=== PATIENT | female | born 1985 | race Caucasian/White ===

== ENCOUNTER → 2017-09-26 | Outpatient (CLI) | payer BC ==
[~2017-09-26] MED LIST: ACHD5005 PO; ACYC800T PO; CIPR500T78 PO; HYDR-34 PO; HYDR-3816 PO; HYOS0.1232; IBP600T1 PO; IRON1TAB94 PO; METR500T PO; NITR-65 PO; ONDA4TAB8 PO; PREN-115 PO; SERT25TA PO; TAMS0.4C98 PO; TRINESSA
--- NOTE | 2017-09-26 09:35 | Diagnostic Imaging Report ---
PROCEDURE: MRI right joint lower extremity without contrast. TECHNIQUE: A multiplanar/multisequence noncontrast enhanced MRI of the right lower extremity was accomplished. INDICATION: Knee pain and swelling. COMPARISON: There are no prior studies available for comparison. FINDINGS: On the proton dense fat-saturated sagittal series, there is no abnormal signal arising from either meniscus to indicate a tear. The anterior and posterior cruciate ligaments, quadriceps and infrapatellar tendons, and the collateral ligaments are intact. There is no abnormal signal arising from the osseous structures to suggest bone edema or fracture. The medial and lateral compartments of the knee joint are fairly well-maintained but there is narrowing of the lateral aspect of the patellofemoral space. There is no sign of chondromalacia patella, however. There is a small joint effusion present. IMPRESSION: 1. There is no evidence for a tear of either meniscus. 2. The major ligaments and tendons are intact. 3. There is no sign of an acute bony abnormality. 4. The medial and lateral compartments of the knee joint are fairly well-maintained but there is narrowing of the lateral aspect of the patellofemoral space. Dictated by: Dictated on workstation # [id number]
== END ==
LOC: RAD 08:22
PROVIDERS: ATTEND Nurse Practitioner Primary Care
DX: M25.861 Other specified joint disorders, right knee (principal)
CPT/HCPCS: 73721

== ENCOUNTER → 2018-08-28 | Outpatient (REF) ==
--- NOTE | 2018-08-28 16:35 | Diagnostic Imaging Report ---
EXAMINATION: Right hand. INDICATION: Injury, hand pain. Three views were obtained. There are no prior studies available for comparison. FINDINGS: There is no fracture, dislocation, or acute bony abnormality evident. The radiocarpal joint is well maintained. The soft tissues are unremarkable. IMPRESSION: There is no evidence for an acute bony abnormality. Dictated by: Dictated on workstation # [id number]
== END | disposition home or self-care (01) ==
LOC: RAD 15:44 → MERGE 15:44
PROVIDERS: ATTEND Nurse Practitioner Family
CPT/HCPCS: 73130

== ENCOUNTER 2018-10-06 20:08 | Emergency (ER) | payer BC ==
[~2018-10-06] VITALS: Ht 165.1 cm; Wt 88.5 kg
--- OUTSIDE RECORDS SUMMARY | 2018-10-06 20:14 | XMS REPORT ---
Author Author SANTO GOINS Organization [facility] Address [address] [place] [address] Care Team Providers Care Logistics/Shipper Name Role Phone SANTO GOINS Unavailable PROBLEMS Type Condition ICD9-CM Code MCG86-DG Code Onset Dates Condition Status SNOMED Code Problem Pain in right knee M25.561 Active 72717364 Problem Other chronic pain G89.29 Active 85206010 Problem Hx of herpes simplex type 2 infection Z86.19 Active [id number] ALLERGIES No Information ENCOUNTERS Encounter Location Date Diagnosis [place] [address] [address] September, [place] [address] [address] September, Pain in right knee M25.561 ; Other chronic pain G89.29 ; Strain of right shoulder, subsequent encounter S46.911D and Candidal vaginitis B37.3 [place] [address] [place] [id number] [place] [address] Aug, Skin tag L91.8 [place] [address] [place] [id number] [place] [address] Aug, Acute cystitis without hematuria N30.00 ; Pain in right shoulder M25.511 ; Pain in right knee M25.561 ; Other chronic pain G89.29 ; Screening for STD sexually transmitted disease Z11.3 ; Urinary frequency R35.0 and Skin tag L91.8 [facility] [address] [place] [id number] [place] [address] May, Fever R50.9 and Influenza J11.1 [place] [address] [address] Dec, Screening for STD sexually transmitted disease Z11.3 [place] [address] [address] Dec, [place] [address] [address] Dec, Well woman exam Z01.419 ; Screening for STD sexually transmitted disease Z11.3 and Yeast vaginitis B37.3 [facility] [address] [id number] Nov, Encounter for dental examination and cleaning without abnormal findings Z01.20 [facility] [address] [id number] September, Dental examination Z01.20 [facility] [address] [address] Aug, Chills R68.83 and Influenza A J10.1 [facility] [address] [address] Aug, Sore throat J02.9 and Strep pharyngitis J02.0 [facility] [address] [address] Mar, Right hand pain M79.641 ; Right wrist pain M25.531 and Contusion of right hand, initial encounter S60.221A [place] [address] [place] [id number] [place] [address] Jun, Hematuria, unspecified R31.9 [place] [address] [address] 18 Jun, 2015 Well woman exam Z01.419 ; Encounter for screening for malignant neoplasm of cervix Z12.4 ; Acne, unspecified L70.9 ; Surveillance for control, intrauterine device Z30.431 ; Urinary frequency R35.0 ; BMI 31.0-31.9,adult Z68.31 ; Genital herpes simplex, unspecified site A60.00 ; Vaginal discharge N89.8 ; Lower abdominal pain R10.30 ; Family history of diabetes mellitus Z83.3 ; Yeast infection B37.9 and Trichomonas vaginalis (TV) infection A59.01 [facility] [address] [address] September, TDAP DX V06.1 [facility] [address] [place] [id number] [place] [address] 14 Aug, 2014 [facility] [address] [place] [id number] [place] [address] Aug, [facility] [address] [place] [id number] [place] [address] Jul, [facility] [address] [place] [id number] [place] [address] Jul, [facility] [address] [place] [id number] [place] [address] Jul, [facility] [address] [place] [id number] [place] [address] Jul, [facility] [address] [place] [id number] [place] [address] Apr, [facility] [address] [place] [id number] [place] [address] Apr, [facility] [address] [place] [id number] [place] [address] Mar, [facility] [address] [place] [id number] [place] [address] Mar, [facility] [address] [place] [id number] [place] [address] Mar, [facility] [address] [place] [id number] [place] [address] Mar, IMMUNIZATIONS No Known Immunizations SOCIAL HISTORY Never Assessed REASON FOR VISIT Possible Referral PLAN OF CARE VITAL SIGNS MEDICATIONS Unknown Medications RESULTS No Results PROCEDURES No Known procedures INSTRUCTIONS MEDICATIONS ADMINISTERED No Known Medications MEDICAL (GENERAL) HISTORY Type Description Date Medical History Herpes Medical History kidney stones Surgical History cholecystectomy Surgical History lithotripsy Surgical History IUD Hospitalization History childbirth
--- OUTSIDE RECORDS SUMMARY | 2018-10-06 20:14 | XMS REPORT ---
Author Author SANTO GOINS [facility] Address [address] [place] [address] Care Team Providers Care Incident Analyst Name Role Phone SANTO GOINS Unavailable PROBLEMS Type Condition ICD9-CM Code MYU45-LS Code Onset Dates Condition Status SNOMED Code Problem Pain in right knee M25.561 Active 08156334 Problem Other chronic pain G89.29 Active 51780085 Problem Hx of herpes simplex type 2 infection Z86.19 Active 205559168 ALLERGIES No Information ENCOUNTERS Encounter Location Date Diagnosis [place] [address] [address] Mar, [place] [address] [place] [id number] [place] [address] Mar, Lower abdominal pain R10.30 and Vaginal discharge N89.8 [place] [address] [address] September, [place] [address] [place] [id number] [place] [address] September, Pain in right knee M25.561 ; Other chronic pain G89.29 ; Strain of right shoulder, subsequent encounter S46.911D and Candidal vaginitis B37.3 [place] [address] [place] [id number] [place] [address] Aug, Skin tag L91.8 [place] [address] [place] [id number] [place] [address] Aug, Acute cystitis without hematuria N30.00 ; Pain in right shoulder M25.511 ; Pain in right knee M25.561 ; Other chronic pain G89.29 ; Screening for STD sexually transmitted disease Z11.3 ; Urinary frequency R35.0 and Skin tag L91.8 [facility] [address] [place] [id number] [place] [address] May, Fever R50.9 and Influenza J11.1 [place] [address] [address] Dec, Screening for STD sexually transmitted disease Z11.3 [place] [address] [address] Dec, [place] [address] [address] Dec, Well woman exam Z01.419 ; Screening for STD sexually transmitted disease Z11.3 and Yeast vaginitis B37.3 [facility] [address] [id number] Nov, Encounter for dental examination and cleaning without abnormal findings Z01.20 [facility] [address] [id number] September, Dental examination Z01.20 [facility] [address] [address] Aug, Chills R68.83 and Influenza A J10.1 [facility] [address] [address] Aug, Sore throat J02.9 and Strep pharyngitis J02.0 [facility] [address] [address] Mar, Right hand pain M79.641 ; Right wrist pain M25.531 and Contusion of right hand, initial encounter S60.221A [place] [address] [address] Jun, Hematuria, unspecified R31.9 [place] [address] [address] 18 Feb, 2016 Well woman exam Z01.419 ; Encounter for [...] B37.9 and Trichomonas vaginalis (TV) infection A59.01 [facility] [address] [place] [id number] [place] [address] September, TDAP DX V06.1 [facility] [address] [place] [id number] [place] [address] Aug, [facility] [address] [place] [id number] [place] [address] Aug, [facility] [address] [place] [id number] [place] [address] Jul, [facility] [address] [place] [id number] [place] [address] Jul, [facility] [address] [place] [id number] [place] [address] Jul, [facility] [address] [place] [id number] [place] [address] Jul, [facility] [address] [place] [id number] [place] [address] Apr, [facility] [address] [place] [id number] [place] [address] Apr, [facility] [address] [place] [id number] [place] [address] Mar, [facility] [address] [place] [id number] [place] [address] Mar, [facility] [address] [place] [id number] [place] [address] Mar, [facility] [address] [facility] [id number] [address] Mar, IMMUNIZATIONS No Known Immunizations SOCIAL HISTORY Never Assessed REASON FOR VISIT request return call PLAN OF CARE VITAL SIGNS MEDICATIONS Unknown Medications RESULTS No Results PROCEDURES No Known procedures INSTRUCTIONS MEDICATIONS ADMINISTERED No Known Medications MEDICAL (GENERAL) HISTORY Type Description Date Medical History Herpes Medical History kidney stones Surgical History cholecystectomy Surgical History lithotripsy Surgical History IUD Surgical History right knee arthroscopic chondroplasty of patella, trochlea and lateraltibial plateau- Dr. Lopez 10/31/17 Hospitalization History childbirth
--- OUTSIDE RECORDS SUMMARY | 2018-10-06 20:14 | XMS REPORT ---
Author Author Migration, Doctor Organization [facility] Address Unknown Phone Unavailable Care Team Providers Care [employer] Name Role Phone Migration, Doctor Unavailable Unavailable PROBLEMS Type Condition ICD9-CM Code JGP85-CZ Code Onset Dates Condition Status SNOMED Code Problem Other chronic pain G89.29 Active 60155414 Problem Pain in right knee M25.561 Active 37710689 Problem Hx of herpes simplex type 2 infection Z86.19 Active [id number] ALLERGIES No Information ENCOUNTERS Encounter Location Date Diagnosis [address] [address] Aug, [place] [address] [place] [id number] [address] Aug, Screening for STD sexually transmitted disease Z11.3 ; Vaginal odor N89.8 ; Vaginal discharge N89.8 ; Other specified bacterial agents as the cause of diseases classified elsewhere B96.89 and Acute vaginitis N76.0 [facility] [address], [place] [address] Mar, [facility] [address] [place] [id number] [address] Mar, [facility] [address] [place] [id number] [address] Mar, Lower abdominal pain R10.30 and Vaginal discharge N89.8 [facility] [address] [place] [id number] [address] September, [facility] [address], [place] [address] September, Pain in right knee M25.561 ; Other chronic pain G89.29 ; Strain of right shoulder, subsequent encounter S46.911D and Candidal vaginitis B37.3 [facility] [address] [place] [address] Aug, Skin tag L91.[address] [address] Aug, Acute cystitis without hematuria N30.00 ; Pain in right shoulder M25.511 ; Pain in right knee M25.561 ; Other chronic pain G89.29 ; Screening for STD sexually transmitted disease Z11.3 ; Urinary frequency R35.0 and Skin tag L91.8 [facility] [address] [address] May, Fever R50.9 and Influenza J11.[address] [address] Dec, Screening for STD sexually transmitted disease Z11.[address] [address] Dec, [address] [address] Dec, Well woman exam Z01.419 ; Screening for STD sexually transmitted disease Z11.3 and Yeast vaginitis B37.3 [facility] [address] [id number] Nov, Encounter for dental examination and cleaning without abnormal findings Z01.20 [facility] [address] [id number] September, Dental examination Z01.20 [facility] [address] [address] Aug, Chills R68.83 and Influenza A J10.1 [facility] [address] [address] Aug, Sore throat J02.9 and Strep pharyngitis J02.0 [facility] [address] [address] Mar, Right hand pain M79.641 ; Right wrist pain M25.531 and Contusion of right hand, initial encounter S60.221A [place] [address] [place] [id number] [place] [address] 20 Jun, 2015 Hematuria, unspecified R31.9 [place] [address] [place] [id number] [place] [address] 18 Jun, 2015 Well woman exam Z01.419 [...] B37.9 and Trichomonas vaginalis (TV) infection A59.01 [place] [address] [place] [id number] [place] [address] September, TDAP DX V06.1 [place] [address] [place] [id number] [place] [address] 14 Aug, 2014 [place] [address] [place] [id number] [place] [address] Aug, [place] [address] [place] [address] Jul, [place] [address] [place] [id number] [place] [address] Jul, [place] [address] [place] [id number] [place] [address] Jul, [place] [address] [place] [id number] [place] [address] Jul, [place] [address] [place] [address] Apr, [place] [address] [place] [id number] [address] Apr, [facility] [address] [facility] [id number] [address] Mar, [facility] [address] [place] [id number], [place] [address] Mar, [facility] [address] [facility] [id number] [address] Mar, [facility] [address] [place] [id number], [place] [address] Mar, IMMUNIZATIONS No Known Immunizations SOCIAL HISTORY Never Assessed REASON FOR VISIT EMR-[facility] PLAN OF CARE VITAL SIGNS MEDICATIONS Unknown [...]
--- OUTSIDE RECORDS SUMMARY | 2018-10-06 20:14 | XMS REPORT ---
Author Author Migration, Doctor Organization [facility] Address Unknown Phone Unavailable Care Team Providers Care [employer] Name Role Phone Migration, Doctor Unavailable Unavailable PROBLEMS Type Condition ICD9-CM Code ISR54-LY Code Onset Dates Condition Status SNOMED Code Problem Other chronic pain G89.29 Active 28374992 Problem Pain in right knee M25.561 Active 71669364 Problem Hx of herpes simplex type 2 infection Z86.19 Active 201099507 ALLERGIES No Information ENCOUNTERS Encounter Location Date Diagnosis [place] [address] [place] [id number] [place] [address] Aug, [place] [address] [place] [id number] [place] [address] Mar, [place] [address] [place] [id number] [place] [address] Mar, [place] [address] [place] [id number] [place] [address] Mar, Lower abdominal pain R10.30 and Vaginal discharge N89.8 [place] [address] [place] [id number] [place] [address] September, [place] [address] [place] [id number] [place] [address] September, Pain in right knee M25.561 ; Other chronic pain G89.29 ; Strain of right shoulder, subsequent encounter S46.911D and Candidal vaginitis B37.3 [place] [address] [place] [id number] [place] [address] Aug, Skin tag L91.8 [place] [address] [place] [id number] [place] [address] Aug, Acute cystitis without hematuria N30.00 ; Pain in right shoulder M25.511 ; Pain in right knee M25.561 ; Other chronic pain G89.29 ; Screening for STD sexually transmitted disease Z11.3 ; Urinary frequency R35.0 and Skin tag L91.8 [facility] [address] [address] May, Fever R50.9 and Influenza J11.[address] [address] Dec, Screening for STD sexually transmitted disease Z11.[address] [address] Dec, [address] [address] Dec, Well woman exam Z01.419 ; Screening for STD sexually transmitted disease Z11.3 and Yeast vaginitis B37.3 [facility] [address] [id number] Nov, Encounter for dental examination and cleaning without abnormal findings Z01.20 [facility] [address] [id number] September, Dental examination Z01.20 [facility] [address] [address] Aug, Chills R68.83 and Influenza A J10.1 [facility] [address] [address] Aug, Sore throat J02.9 and Strep pharyngitis J02.0 [facility] [address] [address] Mar, Right hand pain M79.641 ; Right wrist pain M25.531 and Contusion of right hand, initial encounter S60.221A [address] [address] Jun, Hematuria, unspecified R31.9 [facility] [address], [place] [address] 18 Jun, 2016 Well woman exam Z01.419 ; Encounter [...] B37.9 and Trichomonas vaginalis (TV) infection A59.01 [facility] [address] [place] [id number] [place] [address] September, TDAP DX V06.1 [facility] [address] [place] [id number] [place] [address] 14 Aug, 2014 [facility] [address] [place] [id number] [place] [address] Aug, [facility] [address] [place] [id number] [place] [address] Jul, [facility] [address] [place] [id number] [place] [address] Jul, [facility] [address] [place] [id number] [place] [address] Jul, [facility] [address] [place] [id number] [place] [address] Jul, [facility] [id number] [place] [address] Apr, [facility] [address] [place] [id number] [place] [address] Apr, [facility] [id number] [place] [address] Mar, [facility] [address] [place] [id number] [place] [address] Mar, [facility] [address] [facility] [id number] [address] Mar, [facility] [address] [facility] [id number] [address] Mar, IMMUNIZATIONS No Known Immunizations SOCIAL HISTORY Never Assessed REASON FOR VISIT EMR-[facility] PLAN OF CARE VITAL SIGNS MEDICATIONS Medication Instructions Dosage Frequency Start Date End Date Duration Status Flonase 50 mcg/actuation 1 sprays by Nasal route 2 times per day in each nostril Apr, Active Acyclovir by oral route Mar, Active Bactrim DS 800-160 mg 1 tablet by Oral route 2 times per day for 10 day(s) Apr, Active RESULTS No Results PROCEDURES No Known procedures INSTRUCTIONS MEDICATIONS ADMINISTERED No Known Medications MEDICAL (GENERAL) HISTORY Type Description Date Medical History Herpes Medical History kidney stones Surgical History cholecystectomy Surgical History lithotripsy Surgical History IUD Surgical History right knee arthroscopic chondroplasty of patella, trochlea and lateraltibial plateau- Dr. Lopez 10/31/17 Hospitalization History childbirth
--- OUTSIDE RECORDS SUMMARY | 2018-10-06 20:15 | XMS REPORT ---
Author Author AMY TORIBIO Organization [facility] Address [address] [place] [address] Phone Unavailable Care Team Providers Care Director Print Name Role Phone AMY TORIBIO Unavailable Unavailable PROBLEMS Type Condition ICD9-CM Code MSS00-CB Code Onset Dates Condition Status SNOMED Code Problem Other chronic pain G89.29 Active 68978560 Problem Hx of herpes simplex type 2 infection Z86.19 Active 917987025 ALLERGIES No Known Allergies ENCOUNTERS Encounter Location Date Diagnosis [facility] [address] [address] Aug, Acute cystitis without hematuria N30.00 ; Pain in right shoulder M25.511 ; Pain in right knee M25.561 ; Other chronic pain G89.29 ; Screening for STD (sexually transmitted disease) Z11.3 ; Urinary frequency R35.0 and Skin tag L91.8 [facility] [address] [address] May, Fever R50.9 and Influenza J11.1 [facility] [address] [place] [id number] [place] [address] Dec, Screening for STD (sexually transmitted disease) Z11.3 [facility] [address] [place] [id number] [place] [address] Dec, [facility] [address] [place] [id number] [place] [address] Dec, Well woman exam Z01.419 ; Screening for STD (sexually transmitted disease) Z11.3 and Yeast vaginitis B37.3 [facility] [address] [place] [id number] [place] [id number] Nov, Encounter for dental examination and cleaning without abnormal findings Z01.20 [facility] [address] [id number] 10 Sep, 2016 Dental examination Z01.20 [facility] [place] [address] [address] Aug, Chills R68.83 and Influenza A J10.1 [facility] [place] [address] [id number] [place] [address] Aug, Sore throat J02.9 and Strep pharyngitis J02.0 [facility] [place] [address] [address] Mar, Right hand pain M79.641 ; Right wrist pain M25.531 and Contusion of right hand, initial encounter S60.221A [place] [address] [address] 20 Jun, 2015 Hematuria, unspecified R31.[address] [address] 18 Jun, 2016 Well woman exam Z01.419 [...] B37.9 and Trichomonas vaginalis (TV) infection A59.01 [place] [address] [address] [id number] [place] [address] September, TDAP DX V06.1 [place] [address] [address] 14 Aug, 2014 [place] [address] [address] 13 Aug, 2014 [place] [address] [address] Jul, [facility] [address] [address] Jul, [facility] [address] [address] Jul, [facility] [address] [place] [id number] [address] Jul, [facility] [address] [address] Apr, [facility] [address] [address] Apr, [facility] [address] [address] Mar, [facility] [address] [address] Mar, [facility] [address] [address] Mar, [facility] [address] [place] [id number] [address] Mar, IMMUNIZATIONS No Known Immunizations SOCIAL HISTORY Never Assessed REASON FOR VISIT PROPHY/KASIE PLAN OF CARE Activity Details Follow Up 6 Months Reason:RECALL VITAL SIGNS MEDICATIONS Medication Instructions Dosage Frequency Start Date End Date Duration Status Bactrim DS 800-160 mg 1 tablet by Oral route 2 times per day for 10 day(s) Apr, Active Flonase 50 mcg/actuation 1 sprays by Nasal route 2 times per day in each nostril Apr, Active Flagyl 500 MG Orally once 4 tablets Jun, 1 dose Active Zofran 4 MG Orally 3 times a day 1 tablet 8h Aug, Active Tamiflu 75 MG Orally Twice a day 1 capsule 12h Aug, 5 day(s) Active [place] 5-325 MG Orally every 6 hrs 1 tablet as needed 6h Aug, Active Acyclovir by oral route Mar, Active RESULTS No Results PROCEDURES Procedure Date Ordered Result Body Site COMP ORAL EVALUATION - NEW/EST PT November 24, 2016 INTRAORL-PERIAPICAL 1 FILM 24133 November 24, 2016 PROPHYLAXIS - ADULT November 24, 2016 PANORAMIC FILM SEE ALSO CODE 16813 November 24, 2016 INTRAORL-PERIAPICAL EA ADD FILM November 24, 2016 INTRAORL-PERIAPICAL EA ADD FILM November 24, 2016 BITEWINGS - FOUR FILMS November 24, 2016 INTRAORL-PERIAPICAL EA ADD FILM November 24, 2016 INSTRUCTIONS MEDICATIONS ADMINISTERED No Known Medications MEDICAL (GENERAL) HISTORY Type Description Date Medical History Herpes Medical History kidney stones Surgical History cholecystectomy Surgical History lithotripsy Surgical History IUD Hospitalization History childbirth
--- OUTSIDE RECORDS SUMMARY | 2018-10-06 20:15 | XMS REPORT ---
Author Author TENNILLE Sanchez Organization [facility] Address [address] [place] [address] Care Team Providers Care Cabin Crew Name Role Phone TENNILLE Sanchez Unavailable PROBLEMS Type Condition ICD9-CM Code HSA93-KG Code Onset Dates Condition Status SNOMED Code Problem Pain in right knee M25.561 Active 88590627 Problem Other chronic pain G89.29 Active 36014581 Problem Hx of herpes simplex type 2 infection Z86.19 Active 431115086 ALLERGIES No Known Allergies ENCOUNTERS Encounter Location Date Diagnosis [place] [address] [address] September, [place] [address] [address] September, Pain in right knee M25.561 ; Other chronic pain G89.29 ; Strain of right shoulder, subsequent encounter S46.911D and Candidal vaginitis B37.3 [place] [address] [place] [id number] [place] [address] Aug, Skin tag L91.8 [place] [address] [address] Aug, Acute cystitis without hematuria N30.00 ; Pain in right shoulder M25.511 ; Pain in right knee M25.561 ; Other chronic pain G89.29 ; Screening for STD sexually transmitted disease Z11.3 ; Urinary frequency R35.0 and Skin tag L91.8 [facility] [address] [address] May, Fever R50.9 and Influenza J11.1 [place] [address] [address] Dec, Screening for STD sexually transmitted disease Z11.3 [place] [address] [address] Dec, [place] [address] [address] Dec, Well woman exam Z01.419 ; Screening for STD sexually transmitted disease Z11.3 and Yeast vaginitis B37.3 [facility] [address] [id number] Nov, Encounter for dental examination and cleaning without abnormal findings Z01.20 [facility] [address] [id number] September, Dental examination Z01.20 [facility] [address] [address] Aug, Chills R68.83 and Influenza A J10.1 [facility] [place] [id number] [place] [address] Aug, Sore throat J02.9 and Strep pharyngitis J02.0 [facility] [place] [id number] [place] [address] Mar, Right hand pain M79.641 ; Right wrist pain M25.531 and Contusion of right hand, initial encounter S60.221A [place] [address] [address] Jun, Hematuria, unspecified R31.[address] [address] 18 Jun, 2015 Well woman exam Z01.419 [...] B37.9 and Trichomonas vaginalis (TV) infection A59.01 [facility] [place] [address], [place] [address] September, TDAP DX V06.1 [facility] [place] [address] [place] [id number] [place] [address] Aug, [facility] [place] [address] [place] [id number] [place] [address] Aug, [facility] [place] [address] [place] [id number] [place] [address] Jul, [facility] [place] [address] [place] [id number] [place] [address] Jul, [facility] [place] [address] [place] [id number] [place] [address] Jul, [facility] [place] [address] [place] [id number] [place] [address] Jul, [facility] [place] [address] [place] [id number] [place] [address] Apr, [facility] [place] [address] [place] [id number] [place] [address] Apr, [facility] [place] [address] [place] [address] Mar, [facility] [place] [address], [place] [address] Mar, [facility] [place] [address] [place] [id number] [place] [address] Mar, [facility] [place] [address], [place] [address] Mar, IMMUNIZATIONS No Known Immunizations SOCIAL HISTORY Never Assessed REASON FOR VISIT Painful Urination for a couple of weeks. Urine is very cloudy. Denies fever., Co ngestion, not sure if allergies. of last week, lost voice but throat di d not hurt. This week has nasal drainage and ears stopped up. CBrumbackRN PLAN OF CARE Activity Details Follow Up needs appt for skin biopsy Reason:right lower chest wall VITAL SIGNS Height 65 in 2017-08-21 Weight 188.8 lbs 2017-08-21 Temperature 98.1 degrees Fahrenheit 2017-08-21 Heart Rate 80 bpm 2017-08-21 Respiratory Rate 18 2017-08-21 BMI 31.41 kg/m2 2017-08-21 Blood pressure systolic 104 mmHg 2017-08-21 Blood pressure diastolic 76 mmHg 2017-08-21 MEDICATIONS Medication Instructions Dosage Frequency Start Date End Date Duration Status Tamiflu 75 MG Orally Twice a day 1 capsule 12h May, 5 day(s) Not-Taking Macrobid 100 MG Orally every 12 hrs 1 capsule with food 12h 7 day(s) Active [place] 5-325 MG Orally every 6 hrs 1 tablet as needed 6h Aug, Not-Taking Acyclovir by oral route Mar, Active Zofran 4 MG Orally 3 times a day 1 tablet 8h Aug, Not-Taking RESULTS No Results PROCEDURES Procedure Date Ordered Result Body Site URINALYSIS, AUTO, W/O SCOPE August 21, 2017 X-RAY EXAM OF SHOULDER August 21, 2017 No Charge August 21, 2017 X-RAY EXAM OF KNEE, 3 August 21, 2017 URINE CULTURE/COLONY COUNT August 21, 2017 INSTRUCTIONS MEDICATIONS ADMINISTERED No Known Medications MEDICAL (GENERAL) HISTORY Type Description Date Medical History Herpes Medical History kidney stones Surgical History cholecystectomy Surgical History lithotripsy Surgical History IUD Hospitalization History childbirth
--- OUTSIDE RECORDS SUMMARY | 2018-10-06 20:15 | XMS REPORT ---
Author Author STEF KHALIL [facility] eClinicalWorks Address Unknown Phone Unavailable Care Team Providers Care Abrasive Grader Helper Name Role Phone STEF KHALIL CP Unavailable Allergies, Adverse Reactions, Alerts Substance Reaction Event Type N.K.D.A. Info Not Available Non Drug Allergy Problems Problem Type Condition Code Onset Dates Condition Status Problem Urinary frequency 788.41 Active Problem Acute sinusitis, unspecified 461.9 Active Problem Screening examination for venereal disease V74.5 Active Assessment Right wrist pain M25.531 Active Assessment Contusion of right hand, initial encounter S60.221A Active Problem Routine general medical examination at health care facility V70.0 Active Assessment Right hand pain M79.641 Active Medications Medication Code System Code Instructions Start Date End Date Status Dosage Ibuprofen [facility] [address]-44 800 MG Orally Three times a day as needed Mar 26, 2016 Apr 05, 2016 1 tablet Procedures Procedure Coding System Code Date X-RAY EXAM OF WRIST CPT-4 85039 Mar 26, 2016 Office Visit, Est Pt., Level 3 CPT-4 33144 Mar 26, 2016 X-RAY EXAM OF HAND CPT-4 55887 Mar 26, 2016 Vital Signs Date/Time: Mar 26, 2016 Cardiac Monitoring Heart Rate 92 bpm Weight 175.8 lbs Height 65 in BMI 29.25 Index Blood Pressure Diastolic 82 mmHg Blood Pressure Systolic 126 mmHg Results No Known Results Summary Purpose eClinicalWorks Submission
--- OUTSIDE RECORDS SUMMARY | 2018-10-06 20:15 | XMS REPORT ---
Author Author SANTO GOINS Organization [facility] Address [address] [place] [address] Care Team Providers Care Advice Nurse Name Role Phone SANTO GOINS Unavailable PROBLEMS Type Condition ICD9-CM Code RJP13-RJ Code Onset Dates Condition Status SNOMED Code Problem Pain in right knee M25.561 Active 73866510 Problem Other chronic pain G89.29 Active 62373820 Problem Hx of herpes simplex type 2 infection Z86.19 Active 876735506 ALLERGIES No Known Allergies ENCOUNTERS Encounter Location Date Diagnosis [place] [address] [address] September, [place] [address] [address] September, Pain in right knee M25.561 ; Other chronic pain G89.29 ; Strain of right shoulder, subsequent encounter S46.911D and Candidal vaginitis B37.3 [place] [address] [place] [id number] [place] [address] Aug, Skin tag L91.8 [place] [address] [place] [id number] [place] [address] Aug, Acute cystitis without hematuria N30.00 ; Pain in right shoulder M25.511 ; Pain in right knee M25.561 ; Other chronic pain G89.29 ; Screening for STD sexually transmitted disease Z11.3 ; Urinary frequency R35.0 and Skin tag L91.8 [facility] [address] [place] [id number] [place] [address] May, Fever R50.9 and Influenza J11.1 [place] [address] [address] Dec, Screening for STD sexually transmitted disease Z11.3 [place] [address] [place] [id number] [place] [address] Dec, [place] [address] [address] Dec, Well woman exam Z01.419 ; Screening for STD sexually transmitted disease Z11.3 and Yeast vaginitis B37.3 [facility] [address] [id number] Nov, Encounter for dental examination and cleaning without abnormal findings Z01.20 [facility] [address] [id number] September, Dental examination Z01.20 [facility] [address] [address] Aug, Chills R68.83 and Influenza A J10.1 [facility] [address] [address] Aug, Sore throat J02.9 and Strep pharyngitis J02.0 [facility] [address] [address] Mar, Right hand pain M79.641 ; Right wrist pain M25.531 and Contusion of right hand, initial encounter S60.221A [place] [address] [place] [address] Jun, Hematuria, unspecified R31.[address] [address] 18 Jun, 2015 Well woman exam Z01.419 [...] B37.9 and Trichomonas vaginalis (TV) infection A59.01 [facility] [address], [place] [address] September, TDAP DX V06.1 [facility] [address] [place] [id number] [place] [address] Aug, [facility] [address] [place] [id number] [place] [address] Aug, [facility] [address] [place] [id number] [place] [address] Jul, [facility] [address] [place] [id number] [place] [address] Jul, [facility] [address] [place] [id number] [place] [address] Jul, [facility] [address] [place] [id number] [place] [address] Jul, [facility] [address] [place] [id number] [place] [address] Apr, [facility] [address], [place] [address] Apr, [facility] [address] [place] [address] Mar, [facility] [address], [place] [address] Mar, [facility] [address] [place] [id number] [place] [address] Mar, [facility] [address] [place] [id number] [place] [address] Mar, IMMUNIZATIONS No Known Immunizations SOCIAL HISTORY Never Assessed REASON FOR VISIT Establish Care----DBennettRN PLAN OF CARE Activity Details Follow Up prn if pain doesnt improve in 1 mos Reason:right shoulder pain VITAL SIGNS Height 65 in 2017-09-20 Weight 192 lbs 2017-09-20 Temperature 98.3 degrees Fahrenheit 2017-09-20 Heart Rate 100 bpm 2017-09-20 Respiratory Rate 20 2017-09-20 BMI 31.95 kg/m2 2017-09-20 Blood pressure systolic 102 mmHg 2017-09-20 Blood pressure diastolic 64 mmHg 2017-09-20 MEDICATIONS Medication Instructions Dosage Frequency Start Date End Date Duration Status Meloxicam 7.5 MG Orally Once a day 1 tablet 24h September, Nov, 30 day(s) Active Fluconazole 150 MG Orally once 1 tablet September, 1 dose Active Acyclovir by oral route Mar, Active RESULTS Name Result Date Reference Range MRI : Knee, Right w/o contrast 2017-09-26 PROCEDURES No Known procedures INSTRUCTIONS MEDICATIONS ADMINISTERED No Known Medications MEDICAL (GENERAL) HISTORY Type Description Date Medical History Herpes Medical History kidney stones Surgical History cholecystectomy Surgical History lithotripsy Surgical History IUD Hospitalization History childbirth
--- OUTSIDE RECORDS SUMMARY | 2018-10-06 20:15 | XMS REPORT ---
Author Author JERRELL HESTER Organization [facility] Address [address] [place] [address] Care Team Providers Care Latent Fingerprint Examiner Name Role Phone JERRELL HESTER Unavailable PROBLEMS Type Condition ICD9-CM Code KTC41-JI Code Onset Dates Condition Status SNOMED Code Problem Other chronic pain G89.29 Active 82799985 Problem Hx of herpes simplex type 2 infection Z86.19 Active 785859247 ALLERGIES No Known Allergies ENCOUNTERS Encounter Location Date Diagnosis [facility] [address] [address] Aug, [facility] [address] [address] Aug, Acute cystitis without hematuria N30.00 ; Pain in right shoulder M25.511 ; Pain in right knee M25.561 ; Other chronic pain G89.29 ; Screening for STD sexually transmitted disease Z11.3 ; Urinary frequency R35.0 and Skin tag L91.8 [facility] [address] [place] [id number] [place] [address] May, Fever R50.9 and Influenza J11.1 [facility] [address] [place] [id number] [place] [address] Dec, Screening for STD sexually transmitted disease Z11.3 [facility] [address] [place] [id number] [place] [address] Dec, [place] [address] [address] Dec, Well woman exam Z01.419 ; Screening for STD sexually transmitted disease Z11.3 and Yeast vaginitis B37.3 [facility] [address] [id number] Nov, Encounter for dental examination and cleaning without abnormal findings Z01.20 [facility] [address] [id number] September, Dental examination Z01.20 [facility] [address] [place] [id number] [place] [address] 26 Aug, 2016 Chills R68.83 and Influenza A J10.1 [facility] [address] [address] Aug, Sore throat J02.9 and Strep pharyngitis J02.0 [facility] [address] [address] Mar, Right hand pain M79.641 ; Right wrist pain M25.531 and Contusion of right hand, initial encounter S60.221A [address] [address] 20 Jun, 2015 Hematuria, unspecified R31.[address] [address] 18 Jun, 2016 Well woman exam Z01.419 [...] B37.9 and Trichomonas vaginalis (TV) infection A59.[address] [address] September, TDAP DX V06.[address] [address] Aug, [place] [address] [address] Aug, [facility] [address], [place] [address] Jul, [facility] [address], [place] [address] Jul, [facility] [address], [place] [address] Jul, [facility] [address], [place] [address] Jul, [facility] [address], [place] [address] Apr, [facility] [address], [place] [address] Apr, [facility] [address], [place] [address] Mar, [facility] [address] [place] [id number] [address] Mar, [facility] [address], [place] [address] Mar, [facility] [address] [place] [id number], [place] [address] Mar, IMMUNIZATIONS No Known Immunizations SOCIAL HISTORY Never Assessed REASON FOR VISIT Well Woman Exam, poss yeast infection , pain with intercourse -- eren butler PLAN OF CARE Activity Details Follow Up 1 Year for well woman w/o pap Reason: VITAL SIGNS Height 65 in 2016-12-20 Weight 175.0 lbs 2016-12-20 Temperature 98.0 degrees Fahrenheit 2016-12-20 Heart Rate 78 bpm 2016-12-20 Respiratory Rate 20 2016-12-20 BMI 29.12 kg/m2 2016-12-20 Blood pressure systolic 110 mmHg 2016-12-20 Blood pressure diastolic 76 mmHg 2016-12-20 MEDICATIONS Medication Instructions Dosage Frequency Start Date End Date Duration Status Diflucan 150 MG Orally q48hrs x 3 doses 1 tablet Dec, Dec, 3 days Active RESULTS Name Result Date Reference Range TRICHOMONAS (IN HOUSE) 2016-12-20 TRICHOMONAS Negative Control + Lot # [id number] Exp date 06/02/30 BACTERIAL VAGINOSIS (IN HOUSE) 2016-12-20 RESULTS POSITIVE Control + Lot # [id number] Exp date CULTURE, GENITAL 2016-12-20 Genital Culture, Routine Final report Result 1 GC/CHLAM PROBE (STATE) 2016-12-20 CHLAMYDIA GC PROCEDURES Procedure Date Ordered Result Body Site Bacterial Vaginosis In House Dec 20, 2016 TRICHOMONAS ASSAY W/OPTIC Dec 20, 2016 VENIPUNCT, ROUTINE* Dec 20, 2016 CULTURE, BACTERIA, OTHER Dec 20, 2016 No Charge Dec 20, 2016 INSTRUCTIONS MEDICATIONS ADMINISTERED No Known Medications MEDICAL (GENERAL) HISTORY Type Description Date Medical History Herpes Medical History kidney stones Surgical History cholecystectomy Surgical History lithotripsy Surgical History IUD Hospitalization History childbirth
--- OUTSIDE RECORDS SUMMARY | 2018-10-06 20:15 | XMS REPORT ---
Author Author JERRELL HESTER Organization [facility] Address [address] [place] [address] Care Team Providers Care Respite Care Provider Name Role Phone JERRELL HESTER Unavailable PROBLEMS Type Condition ICD9-CM Code YCD86-IC Code Onset Dates Condition Status SNOMED Code Problem Other chronic pain G89.29 Active 50024966 Problem Hx of herpes simplex type 2 infection Z86.19 Active 021290300 ALLERGIES No Information ENCOUNTERS Encounter Location Date Diagnosis [facility] [address] [address] Aug, [facility] [address] [address] Aug, Acute cystitis without hematuria N30.00 ; Pain in right shoulder M25.511 ; Pain in right knee M25.561 ; Other chronic pain G89.29 ; Screening for STD sexually transmitted disease Z11.3 ; Urinary frequency R35.0 and Skin tag L91.8 [facility] [address] [place] [id number] [place] [address] May, Fever R50.9 and Influenza J11.1 [facility] [address] [address] Dec, Screening for STD sexually transmitted disease Z11.3 [facility] [address] [address] Dec, [place] [address] [address] Dec, Well woman exam Z01.419 ; Screening for STD sexually transmitted disease Z11.3 and Yeast vaginitis B37.3 [facility] [address] [id number] Nov, Encounter for dental examination and cleaning without abnormal findings Z01.20 [facility] [address] [id number] September, Dental examination Z01.20 [facility] [id number] [place] [address] 26 Aug, 2016 Chills R68.83 and Influenza A J10.1 [facility] [address] [address] Aug, Sore throat J02.9 and Strep pharyngitis J02.0 [facility] [address] [address] Mar, Right hand pain M79.641 ; Right wrist pain M25.531 and Contusion of right hand, initial encounter S60.221A [address] [address] 20 Jun, 2015 Hematuria, unspecified R31.[address] [address] 18 Jun, 2016 Well woman exam Z01.419 [...] B37.9 and Trichomonas vaginalis (TV) infection A59.[address] [address] September, TDAP DX V06.[address] [address] Aug, [address] [place] [address] Aug, [facility] [address] [address] Jul, [facility] [address] [place] [id number] [address] Jul, [facility] [address] [address] Jul, [facility] [address] [address] Jul, [facility] [address] [address] Apr, [facility] [address] [address] Apr, [facility] [address] [address] Mar, [facility] [address] [address] Mar, [facility] [address] [address] Mar, [facility] [address] [id number] [address] Mar, IMMUNIZATIONS No Known Immunizations SOCIAL HISTORY Never Assessed REASON FOR VISIT med PLAN OF CARE VITAL SIGNS MEDICATIONS Medication Instructions Dosage Frequency Start Date End Date Duration Status Metronidazole 500 mg Orally Twice a day 1 tablet 12h Dec, Dec, 07 days Active RESULTS No Results PROCEDURES No Known procedures INSTRUCTIONS MEDICATIONS ADMINISTERED No Known Medications MEDICAL (GENERAL) HISTORY Type Description Date Medical History Herpes Medical History kidney stones Surgical History cholecystectomy Surgical History lithotripsy Surgical History IUD Hospitalization History childbirth
--- OUTSIDE RECORDS SUMMARY | 2018-10-06 20:15 | XMS REPORT ---
Author Author PADMINI SR Organization [facility] Address [address] [place] [address] Care Team Providers Care Live Hanger Name Role Phone PADMINI SR Unavailable PROBLEMS Type Condition ICD9-CM Code QUP39-YY Code Onset Dates Condition Status SNOMED Code Problem Pain in right knee M25.561 Active 38701781 Problem Other chronic pain G89.29 Active 65109064 Problem Hx of herpes simplex type 2 infection Z86.19 Active 779698180 ALLERGIES No Known Allergies ENCOUNTERS Encounter Location Date Diagnosis [address] [address] September, [address] [address] September, Pain in right knee M25.561 ; Other chronic pain G89.29 ; Strain of right shoulder, subsequent encounter S46.911D and Candidal vaginitis B37.[address] [address] Aug, Skin tag L91.8 [place] [id number] [place] [address] Aug, Acute cystitis without hematuria N30.00 ; Pain in right shoulder M25.511 ; Pain in right knee M25.561 ; Other chronic pain G89.29 ; Screening for STD sexually transmitted disease Z11.3 ; Urinary frequency R35.0 and Skin tag L91.8 [facility] [address] [place] [id number] [place] [address] May, Fever R50.9 and Influenza J11.[address] [address] Dec, Screening for STD sexually transmitted disease Z11.3 [place] [address] [place] [id number] [place] [address] Dec, [place] [id number] Dec, Well woman exam Z01.419 ; Screening for STD sexually transmitted disease Z11.3 and Yeast vaginitis B37.3 [facility] [address] [id number] Nov, Encounter for dental examination and cleaning without abnormal findings Z01.20 [facility] [address] [id number] September, Dental examination Z01.20 [facility] [address] [address] Aug, Chills R68.83 and Influenza A J10.1 [facility] [address] [address] Aug, Sore throat J02.9 and Strep pharyngitis J02.0 [facility] [address] [address] Mar, Right hand pain M79.641 ; Right wrist pain M25.531 and Contusion of right hand, initial encounter S60.221A [address] [address] Jun, Hematuria, unspecified R31.[address] [address] 18 Jun, 2015 Well woman exam Z01.419 [...] B37.9 and Trichomonas vaginalis (TV) infection A59.01 [facility] [address] [address] September, TDAP DX V06.1 [facility] [address] [address] 14 Aug, 2014 [facility] [address] [address] [id number] [place] [address] Aug, [facility] [address] [address] Jul, [facility] [address] [place] [id number] [place] [address] Jul, [facility] [address] [place] [address] [id number] [place] [address] Jul, [facility] [address] [address] Jul, [facility] [address] [address] Apr, [facility] [address] [address] Apr, [facility] [address] [address] Mar, [facility] [address] [address] Mar, [facility] [address] [address] Mar, [facility] [address] [address] Mar, IMMUNIZATIONS No Known Immunizations SOCIAL HISTORY Never Assessed REASON FOR VISIT Skin tag biopsy from right side angelo Hong MA PLAN OF CARE Activity Details Future/Pending Procedure BIOPSY SKIN LESION (SINGLE) VITAL SIGNS Height 65 in 2017-09-05 Weight 188.4 lbs 2017-09-05 Temperature 98.3 degrees Fahrenheit 2017-09-05 Heart Rate 82 bpm 2017-09-05 Respiratory Rate 18 2017-09-05 BMI 31.35 kg/m2 2017-09-05 Blood pressure systolic 106 mmHg 2017-09-05 Blood pressure diastolic 70 mmHg 2017-09-05 MEDICATIONS Medication Instructions Dosage Frequency Start Date End Date Duration Status Acyclovir by oral route Mar, Active RESULTS Name Result Date Reference Range PATHOLOGY REPORT (TISSUE PATHOLOGY) 2017-09-05 CLINICAL INFORMATION PATHOLOGIST TISSUE, SPECIMEN A 2017-09-05 A SOURCE A GROSS DESCRIPTION A DIAGNOSIS PROCEDURES Procedure Date Ordered Result Body Site BIOPSY OF SKIN LESION September 05, 2017 INSTRUCTIONS MEDICATIONS ADMINISTERED No Known Medications MEDICAL (GENERAL) HISTORY Type Description Date Medical History Herpes Medical History kidney stones Surgical History cholecystectomy Surgical History lithotripsy Surgical History IUD Hospitalization History childbirth
--- OUTSIDE RECORDS SUMMARY | 2018-10-06 20:15 | XMS REPORT ---
Author Author TENNILLE Sanchez Organization [facility] Address [address] [place] [address] Care Team Providers Care Library Media Specialist Name Role Phone TENNILLE Sanchez Unavailable PROBLEMS Type Condition ICD9-CM Code CWP44-MT Code Onset Dates Condition Status SNOMED Code Problem Pain in right knee M25.561 Active 36280683 Problem Other chronic pain G89.29 Active 52250915 Problem Hx of herpes simplex type 2 infection Z86.19 Active 671505363 ALLERGIES No Known Allergies ENCOUNTERS Encounter Location Date Diagnosis [place] [address] [address] September, [place] [address] [address] September, Pain in right knee M25.561 ; Other chronic pain G89.29 ; Strain of right shoulder, subsequent encounter S46.911D and Candidal vaginitis B37.3 [place] [address] [place] [id number] [place] [address] Aug, Skin tag L91.8 [place] [address] [address] Aug, Acute cystitis without hematuria N30.00 ; Pain in right shoulder M25.511 ; Pain in right knee M25.561 ; Other chronic pain G89.29 ; Screening for STD sexually transmitted disease Z11.3 ; Urinary frequency R35.0 and Skin tag L91.8 [facility] [address] [address] May, Fever R50.9 and Influenza J11.1 [place] [address] [address] Dec, Screening for STD sexually transmitted disease Z11.3 [place] [address] [address] Dec, [place] [address] [address] Dec, Well woman exam Z01.419 ; Screening for STD sexually transmitted disease Z11.3 and Yeast vaginitis B37.3 [facility] [address] [id number] Nov, Encounter for dental examination and cleaning without abnormal findings Z01.20 [facility] [address] [id number] September, Dental examination Z01.20 [facility] [address] [address] Aug, Chills R68.83 and Influenza A J10.1 [facility] [place] [id number] [place] [address] Aug, Sore throat J02.9 and Strep pharyngitis J02.0 [facility] [place] [id number] [place] [address] Mar, Right hand pain M79.641 ; Right wrist pain M25.531 and Contusion of right hand, initial encounter S60.221A [place] [address] [address] Jun, Hematuria, unspecified R31.[address] [address] 18 Jun, 2015 Well woman exam Z01.419 [...] B37.9 and Trichomonas vaginalis (TV) infection A59.01 [facility] [address], [place] [address] September, TDAP DX V06.1 [facility] [address] [place] [id number] [place] [address] 14 Aug, 2014 [facility] [address] [id number] [place] [address] Aug, [facility] [address] [place] [address] [id number] [place] [address] Jul, [facility] [address] [id number] [place] [address] Jul, [facility] [address] [id number] [place] [address] Jul, [facility] [address] [id number] [place] [address] Jul, [facility] [id number] [place] [address] Apr, [facility] [address] [id number] [place] [address] Apr, [facility] [address] [id number] [place] [address] Mar, [facility] [address], [place] [address] Mar, [facility] [address] [place] [id number] [place] [address] Mar, [facility] [address], [place] [address] Mar, IMMUNIZATIONS No Known Immunizations SOCIAL HISTORY Never Assessed REASON FOR VISIT flu symptoms Pt reports headache, fever and body aches which started this eveni diego Gan MA PLAN OF CARE Activity Details Follow Up prn Reason: VITAL SIGNS Height 65 in 2017-05-24 Weight 187.4 lbs 2017-05-24 Temperature 103. degrees Fahrenheit 2017-05-24 Heart Rate 100 bpm 2017-05-24 Respiratory Rate 20 2017-05-24 BMI 31.18 kg/m2 2017-05-24 Blood pressure systolic 116 mmHg 2017-05-24 Blood pressure diastolic 76 mmHg 2017-05-24 MEDICATIONS Medication Instructions Dosage Frequency Start Date End Date Duration Status Zofran 4 MG Orally 3 times a day 1 tablet 8h Aug, Not-Taking Chitina 5-325 MG Orally every 6 hrs 1 tablet as needed 6h Aug, Not-Taking Acyclovir by oral route Mar, Not-Taking Tamiflu 75 MG Orally Twice a day 1 capsule 12h May, 5 day(s) Active RESULTS Name Result Date Reference Range INFLUENZA A & B (IN HOUSE) INFLUENZA A negative INFLUENZA B negative Control + Lot # [id number] Exp date 08/19/2019 PROCEDURES Procedure Date Ordered Result Body Site INFLUENZA ASSAY W/OPTIC May 24, 2017 INSTRUCTIONS MEDICATIONS ADMINISTERED No Known Medications MEDICAL (GENERAL) HISTORY Type Description Date Medical History Herpes Medical History kidney stones Surgical History cholecystectomy Surgical History lithotripsy Surgical History IUD Hospitalization History childbirth
--- OUTSIDE RECORDS SUMMARY | 2018-10-06 20:15 | XMS REPORT ---
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 Name Role Phone HERBERT THOMAS Unavailable PROBLEMS Type Condition ICD9-CM Code BSL35-ON Code Onset Dates Condition Status SNOMED Code Problem Hx of herpes simplex type 2 infection Z86.19 Active 349177498 ALLERGIES No Known Allergies SOCIAL HISTORY Never Assessed PLAN OF CARE Activity Details Follow Up prn Reason:HYGIENE VITAL SIGNS Blood pressure systolic 119 mmHg 2016-09-28 Blood pressure diastolic 77 mmHg 2016-09-28 MEDICATIONS Unknown Medications RESULTS No Results PROCEDURES Procedure Date Ordered Result Body Site LTD ORAL EVALUATION - PROBLEM FOCUS September 28, 2016 INTRAORL-PERIAPICAL 1 FILM 13772 September 28, 2016 BITEWINGS - TWO FILMS September 28, 2016 IMMUNIZATIONS No Known Immunizations MEDICAL (GENERAL) HISTORY Type Description Date Medical History Herpes Medical History kidney stones Surgical History cholecystectomy Surgical History lithotripsy Hospitalization History childbirth
--- OUTSIDE RECORDS SUMMARY | 2018-10-06 20:17 | XMS REPORT | Continuity of Care Document ---
Author Organization Unknown Address Unknown Allergies Active Description Code Type Severity Reaction Onset Reported/Identified Relationship to Patient Clinical Status Yes No Known Drug Intolerances [id number] Drug Allergy Unknown N/A 01/30/2008 Yes No Known Drug Allergies [id number] Drug Allergy Unknown N/A 01/31/2008 Medications There is no data. Problems Date Dx Coded Attending Type Code Diagnosis Diagnosed By 03/26/2014 TAMIA GERARD APRN A 788.41 URINARY FREQUENCY 03/26/2014 SURESH GERARD APRNIDI A V74.5 STD SCREEN 03/26/2014 TAN BANSAL APRNYL A 788.41 URINARY FREQUENCY 03/26/2014 ROLF RAY LEANDRO A V74.5 STD SCREEN 03/26/2014 LAURA FIELD MARKETING REPRESENTATIVE, SANTI R 788.41 URINARY FREQUENCY 03/26/2014 LAURA FIELD MARKETING REPRESENTATIVE, SANTI R V74.5 STD SCREEN 05/01/2014 ROLF RAY LEANDRO A 461.9 SINUSITIS ACUTE 05/01/2014 LAURA RAY, SANTI R 461.9 SINUSITIS ACUTE 06/25/2014 CHAPINCITO VIRK, SERA Schreiber Ot 592.1 CALCULUS OF URETER 06/25/2014 CHAPINCITO VIRK, SERA Schreiber Ot 789.09 ABDOMINAL PAIN, OTHER SPECIFIED SITE 08/05/2014 LAURA RAY, SANTI R V70.0 ROUTINE GENERAL MEDICAL EXAMINATION AT A HEALTH CARE FACILITY 03/15/2016 LIBRADO WHITAKER DO Ot D72.829 ELEVATED WHITE BLOOD CELL COUNT, UNSPECI 03/15/2016 LIBRADO WHITAKER DO Ot N13.2 HYDRONEPHROSIS WITH RENAL AND URETERAL C 03/15/2016 LIBRADO WHITAKER DO Ot N39.0 URINARY TRACT INFECTION, SITE NOT SPECIF 03/15/2016 LIBRADO WHITKAER DO Ot R10.31 RIGHT LOWER QUADRANT PAIN 03/15/2016 LIBRADO WHITAKER DO Ot Z87.442 PERSONAL HISTORY OF URINARY CALCULI 03/15/2016 LIBRADO WHITAKER DO Ot Z97.5 PRESENCE OF (INTRAUTERINE) CONTRACEPTIVE 09/27/2017 SANTO GOINS APRN Ot M25.861 OTHER SPECIFIED JOINT DISORDERS, RIGHT K 10/12/2017 SANTO GOINS APRN Ot M25.861 OTHER SPECIFIED JOINT DISORDERS, RIGHT K Procedures Code Description [place] [address] ROUTINE VENIPUNCTURE 03/26/2014 34434 SYPHILLIS-[facility] 03/26/2014 76542 HIV ([facility]) 03/26/2014 94299 GC/CHLAM PROBE (STATE) 03/26/2014 19189 UA W/ CULTURE IF INDICATED 03/26/2014 88119 TRICHOMONAS (IN-HOUSE) 03/26/2014 61758 THERAPUTIC INJ SQ/IM 05/01/2014 J1040 DEPO MEDROL 80 MG INJ 05/01/2014 Urology Gagan Avilez 08/05/2014 Results Test Result Range Complete blood count (CBC) with automated white blood cell (WBC) differential - 03/15/16 00:40 Blood leukocytes automated count (number/volume) 20.0 10*3/uL 4.3-11.0 Blood erythrocytes automated count (number/volume) 4.51 10*6/uL 4.35-5.85 Venous blood hemoglobin measurement (mass/volume) 14.2 g/dL 11.5-16.0 Blood hematocrit (volume fraction) 41 % 35-52 Automated erythrocyte mean corpuscular volume 91 [foz_us] 80-99 Automated erythrocyte mean corpuscular hemoglobin (mass per erythrocyte) 32 pg 25-34 Automated erythrocyte mean corpuscular hemoglobin concentration measurement (mass/volume) 35 g/dL 32-36 Automated erythrocyte distribution width ratio 12.3 % 10.0- 14.5 Automated blood platelet count (count/volume) 249 10*3/uL 130-400 Automated blood platelet mean volume measurement 10.8 [foz_us] 7.4-10.4 Automated blood neutrophils/100 leukocytes 42 % 42-75 Automated blood lymphocytes/100 leukocytes 48 % 12-44 Blood monocytes/100 leukocytes 9 % 0-12 Automated blood eosinophils/100 leukocytes 1 % 0-10 Automated blood basophils/100 leukocytes 0 % 0-10 Blood neutrophils automated count (number/volume) 8.4 10*3 1.8-7.8 Blood lymphocytes automated count (number/volume) 9.7 10*3 1.0-4.0 Blood monocytes automated count (number/volume) 1.8 10*3 0.0- 1.0 Automated eosinophil count 0.2 10*3/uL 0.0-0.3 Automated blood basophil count (count/volume) 0.1 10*3/uL 0.0-0.1 Comprehensive metabolic panel - 03/15/16 00:40 Serum or plasma sodium measurement (moles/volume) 138 mmol/L 135-145 Serum or plasma potassium measurement (moles/volume) 3.6 mmol/L 3.6-5.0 Serum or plasma chloride measurement (moles/volume) 108 mmol/L 98-107 Carbon dioxide 19 mmol/L 21-32 Serum or plasma anion gap determination (moles/volume) 11 mmol/L 5-14 Serum or plasma urea nitrogen measurement (mass/volume) 15 mg/dL 7-18 Serum or plasma creatinine measurement (mass/volume) 0.79 mg/dL 0.60-1.30 Serum or plasma urea nitrogen/creatinine mass ratio 19 NRG Serum or plasma creatinine measurement with calculation of estimated glomerular filtration rate > NRG Serum or plasma glucose measurement (mass/volume) 128 mg/dL 70-105 Serum or plasma calcium measurement (mass/volume) 9.3 mg/dL 8.5-10.1 Serum or plasma total bilirubin measurement (mass/volume) 0.6 mg/dL 0.1-1.0 Serum or plasma alkaline phosphatase measurement (enzymatic activity/volume) 39 U/L 40-136 Serum or plasma aspartate aminotransferase measurement (enzymatic activity/volume) 15 U/L 5-34 Serum or plasma alanine aminotransferase measurement (enzymatic activity/volume) 14 U/L 0-55 Serum or plasma protein measurement (mass/volume) 7.0 g/dL 6.4-8.2 Serum or plasma albumin measurement (mass/volume) 4.5 g/dL 3.2-4.5 Serum or plasma amylase measurement (enzymatic activity/volume) - 03/15/16 00:40 Serum or plasma amylase measurement (enzymatic activity/volume) 38 U/L 25-125 Lipase - 03/15/16 00:40 Lipase 19 U/L 8-78 Blood manual differential performed detection - 03/15/16 00:40 Blood monocytes/100 leukocytes 6 % NRG Manual blood segmented neutrophils/100 leukocytes 37 % NRG Blood band neutrophils/100 leukocytes 2 % NRG Manual blood lymphocytes/100 leukocytes 51 % NRG Manual eosinophils/100 leukocytes in nose 3 % NRG Manual blood basophils/100 leukocytes 1 % NRG Blood erythrocyte morphology finding identification NORMAL NRG Complete urinalysis with reflex to culture - 03/15/16 00:50 Urine color determination YELLOW NRG Urine clarity determination VERY CLOUDY NRG Urine pH measurement by test strip 5 5-9 Specific gravity of urine by test strip 1.030 1.016-1.022 Urine protein assay by test strip, semi-quantitative 2+ NEGATIVE Urine glucose detection by automated test strip NEGATIVE NEGATIVE Erythrocytes detection in urine sediment by light microscopy 4+ NEGATIVE Urine ketones detection by automated test strip NEGATIVE NEGATIVE Urine nitrite detection by test strip NEGATIVE NEGATIVE Urine total bilirubin detection by test strip NEGATIVE NEGATIVE Urine urobilinogen measurement by automated test strip (mass/volume) 1 mg/dL NORMAL Urine leukocyte esterase detection by dipstick 2+ NEGATIVE Automated urine sediment erythrocyte count by microscopy (number/high power field) [HPF] NRG Automated urine sediment leukocyte count by microscopy (number/high power field) [HPF] NRG Bacteria detection in urine sediment by light microscopy LARGE NRG Squamous epithelial cells detection in urine sediment by light microscopy 5-10 NRG Crystals detection in urine sediment by light microscopy NONE NRG Casts detection in urine sediment by light microscopy NONE NRG Mucus detection in urine sediment by light microscopy NEGATIVE NRG Complete urinalysis with reflex to culture YES NRG Serum or plasma choriogonadotropin ( test) detection - 03/15/16 00:50 Serum or plasma choriogonadotropin ( test) detection NEGATIVE NEGATIVE Bacterial urine culture - 03/15/16 00:50 URINE CULTURE RESULTS <10,000/ML NRG GC/CHLAMYDIA (SWAB OR URINE)-RAPID - 03/29/18 10:08 CHLAMYDIA TRACHOMATIS RNA, TMA NOT DETECTED NOT DETECTED NEISSERIA GONORRHOEAE RNA, TMA NOT DETECTED NOT DETECTED COMMENT NRG CULTURE, URINE - 03/29/18 10:08 CULTURE, URINE, ROUTINE SEE NOTE NRG GC/CHLAMYDIA (SWAB OR URINE)-RAPID - 08/24/18 10:15 CHLAMYDIA TRACHOMATIS RNA, TMA NOT DETECTED NOT DETECTED NEISSERIA GONORRHOEAE RNA, TMA NOT DETECTED NOT DETECTED COMMENT NRG SUREPATH PAP RFX HPV mRNA E6/E7 - 08/24/18 10:15 CLINICAL INFORMATION: NRG LMP: NRG PREV. PAP: NRG PREV. 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 Visit Date/Time Discharge Status Pt. Type Provider Facility Loc./Unit Complaint [id number] 08/05/2014 15:00:00 08/05/2014 23:59:59 CLS Outpatient SANTI SANCHEZ APRN [id number] 05/01/2014 09:58:00 05/01/2014 23:59:59 CLS Outpatient LEANDRO BANSAL APRN [id number] 03/26/2014 17:58:00 03/26/2014 23:59:59 CLS Outpatient TAMIA GERARD APRN [id number] 10/02/2018 15:20:00 10/02/2018 23:59:59 CLS Outpatient SANTO GOINS [facility] [id number] 08/24/2018 08:45:00 Document Registration [id number] 03/29/2018 09:20:00 Document Registration [id number] 09/26/2017 08:22:00 09/26/2017 23:59:59 CLS Outpatient SANTO GOINS APRN [facility] RAD PAIN IN RIGHT KNEE [id number] 03/15/2016 00:38:00 03/15/2016 02:57:00 DIS Emergency LIBRADO WHITAKER DO [facility] ER RT SIDE BACK PAIN [id number] 06/25/2014 12:17:00 06/25/2014 14:58:00 DIS Emergency SERA BECKHAM MD [facility] ER LEFT FLANK PAIN [id number] 02/04/2013 19:51:00 02/06/2013 14:45:00 DIS Inpatient [id number] 01/31/2013 17:35:00 01/31/2013 19:30:00 DIS Outpatient [id number] 01/29/2013 18:20:00 01/29/2013 20:35:00 DIS Outpatient [id number] 11/25/2012 17:32:00 11/25/2012 19:20:00 DIS Outpatient [id number] 10/06/2018 20:09:00 ACT Emergency ALICIA VIRK, MADDIE [facility] ER LFT FOOT PAIN [id number] 09/24/2018 11:03:00 Document Registration
[2018-10-06] MEDS ORDERED: morphine INJ 10 MG/ML 1ML (SYR OR VIAL) IVP STA (20:37)
--- NOTE | 2018-10-06 20:53 | ED Lower Extremity ---
General Chief Complaint: Lower Extremity Stated Complaint: LFT FOOT PAIN Nursing Triage Note: PATIENT HAD A FALL TODAY FROM STANDING AND HAVING PAIN TO LEFT ANKLE/FOOT. PT DENIES HITTING HEAD OR LOC. PT ABLE TO WALK WITH CRUTCHES. SENSATIONS INTACT. Nursing Sepsis Screen: No Definite Risk Source: patient Exam Limitations: no limitations History of Present Illness Date Seen by Provider: October 06, 2018 Time Seen by Provider: 20:30 Initial Comments 33-year-old female patient presents to the emergency department with complaints of twisting the left ankle/foot just prior to arrival. Patient denies hitting her head or loss of consciousness. Denies neck or back pain. Patient reports injury occurred while walking to her car after the [employer] graduation. Reports slipping off of the curb. Location Injury Occurred: outside [employer] graduation Onset: just prior to arrival Pain/Injury Location: left foot, left ankle Method of Injury: twisted Modifying Factors: Worse With Movement, Worse With Other (ambulation) Allergies and Home Medications Allergies Coded Allergies: No Known Drug Intolerances (Verified Allergy, Unknown, 01/30/08) No Known Drug Allergies (Verified , 01/31/08) Home Medications Acyclovir 800 Mg Tablet, 400 MG PO BID, (Reported) Ciprofloxacin HCl 500 Mg Tablet, 500 MG PO BID Prescribed by: SERA BECKHAM on 06/25/14 1449 Hydrocodone Bit/Acetaminophen 1 Tab Tablet, 1 TAB PO Q4H PRN for PAIN Prescribed by: SERA BECKHAM on 06/25/14 1449 Hydrocodone Bit/Acetaminophen 1 Each Tablet, 1-2 EACH PO Q4H Prescribed by: LIBRADO WHITAKER on 03/15/16147 Hydrocodone Bit/Acetaminophen 1 Tab Tab, 1 EACH PO Q4-6HR PRN for PAIN-MODERATE Prescribed by: KISHOR DAWN on 10/06/182132 Nitrofurantoin Monohyd/M-Cryst 100 Mg Capsule, 100 MG PO BID Prescribed by: LIBRADO WHITAKER on 03/15/16147 Ondansetron 4 Mg Tab.rapdis, 4 MG PO Q4H Prescribed by: LIBRADO WHITAKER on 03/15/16147 Sertraline Hcl 25 Mg Tablet, 25 MG PO DAILY, (Reported) Tamsulosin HCl 0.4 Mg Cap, 0.4 MG PO DAILY Prescribed by: LIBRADO WHITAKER on 03/15/16 0148 Patient Home Medication List Home Medication List Reviewed: Yes Review of Systems Constitutional: no symptoms reported EENTM: no symptoms reported Respiratory: no symptoms reported Cardiovascular: no symptoms reported Musculoskeletal: see HPI; No back pain; joint pain, joint swelling; No neck pain Skin: no symptoms reported Psychiatric/Neurological: Denies Numbness, Denies Paresthesia, Denies Tingling, Denies Weakness All Other Systems Reviewed Negative Unless Noted: Yes (Negative excepted noted.) Past Ruyvtgp-Hscydd-Qwmplz Hx Past Med/Social Hx: Reviewed Nursing Past Med/Soc Hx Patient Social History Alcohol Use: Denies Use Recreational Drug Use: No Recent Foreign Travel: No Contact w/Someone Who Travel: No Recent Infectious Disease Expo: No Recent Hopitalizations: No Physical Abuse: No Sexual Abuse: No Mistreated: No Immunizations Up To Date Tetanus Booster (TDap): Less than 5yrs Seasonal Allergies Seasonal Allergies: No Past Medical History Surgeries: Yes (LITHOTRIPSY) Gallbladder, Renal Respiratory: No Cardiac: No Neurological: No Reproductive Disorders: No 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 4.0oz. 88.355268bj; BMI Method:Stated General Appearance: WD/WN, no apparent distress Cardiovascular: normal peripheral pulses, regular rate, rhythm, no murmur Respiratory: lungs clear, normal breath sounds, no respiratory distress, no accessory muscle use Hips: bilateral hip non-tender, bilateral hip normal inspection, bilateral hip normal range of motion, bilateral hip no evidence of injury Legs: bilateral leg non-tender, bilateral leg normal inspection, bilateral leg normal range of motion, bilateral leg no evidence of injury Knees: bilateral knee non-tender, bilateral knee normal inspection, bilateral knee normal range of motion, bilateral knee no evidence of injury Ankles: right ankle non-tender, right ankle normal inspection, right ankle normal range of motion, right ankle no evidence of injury; left ankle bone tenderness (lateral malleolus), left ankle ecchymosis (lateral malleolus), left ankle limited range of motion, left ankle pain, left ankle soft tissue tenderness, left ankle swelling Feet: right foot non-tender, right foot normal inspection, right foot normal range of motion, right foot no evidence of injury; left foot bone tenderness (left proximal foot tenderness), left foot ecchymosis (proximal left foot), left foot limited range of motion, left foot pain, left foot soft tissue tenderness, left foot swelling Neurologic/Tendon: normal sensation, normal motor functions, normal tendon fun ctions, responds to pain, no evidence tendon injury Neurologic/Psychiatric: no motor/sensory deficits, alert, normal mood/affect, oriented x 3 Skin: normal color, warm/dry, other (see ankle and foot exam above.) Progress/Results/Core Measures Results/Orders My Orders Orders - KISHOR DAWN Foot, Left, 3 Views (10/06/18 20:37) Ankle, Left, 3 Views (10/06/18 20:37) Morphine Injection (Morphine Injection (10/06/18 20:37) Rx-Hydrocodone/Apap 5-325 Mg (Rx-Vicodin (10/06/18 21:45) Steplite (10/06/18 21:44) Vital Signs/I&O 10/06/18 10/06/18 20:40 21:48 Temp 98.6 97.6 Pulse 87 76 Resp 18 18 B/P (MAP) 141/71 (94) 141/71 (94) Pulse Ox 87 99 Blood Pressure Mean: 94 Diagnostic Imaging Diagonstic Imaging: Xray Plain Films/CT/US/NM/MRI: other (foot) Comments FOOT, LEFT, 3 VIEWS INDICATION: Fall, left foot injury COMPARISON: None FINDINGS: Two views of the left foot demonstrate no fracture or dislocation. Articular surfaces are normal. No foreign body seen. IMPRESSION: Negative left foot Dictated by: Dictated on workstation # [id number] Dict: 10/06/182052 Trans: 10/06/182056 [facility] [id number] Interpreted by: YOKO THAYER signed by: YOKO THAYER 10/06/182056 ADDENDUM REPORT ADDENDUM/IMPRESSION: There is a tiny chip fracture involving the lateral aspect of the cuboid. No displacement. Dictated by: Dictated on workstation # [id number] Reviewed: Reviewed by Me (radiology report reviewed by me), Discussed w/Radiologist (discussed with Dr. Thayer) Diagonstic Imaging: Xray Plain Films/CT/US/NM/MRI: other (left ankle) Comments ANKLE, LEFT, 3 VIEWS INDICATION: Left ankle pain COMPARISON: None FINDINGS: 3 views of the left ankle demonstrate no fracture or dislocation. Articular surfaces are normal. No foreign body seen. IMPRESSION: Negative left ankle Dictated by: Dictated on workstation # [id number] Reviewed: Reviewed by Me (radiology report reviewed by me) Departure Communication (Admissions) Diagnostic findings discussed with the patient. Plan for discharge to home. Impression Primary Impression: Nondisplaced fracture of cuboid bone of left foot, initial encounter for closed fracture Additional Impression: Sprain of ankle, left Qualified Codes: S93.412A - Sprain of calcaneofibular ligament of left ankle, initial encounter Disposition: 01 HOME, SELF-CARE Condition: Improved Departure-Patient Inst. Decision time for Depature: 21:30 Referrals: [facility] [place]Family) Primary Care Physician CHERELLE LOW MD Patient Instructions: Foot Fracture (DC) Add. Discharge Instructions: All discharge instructions reviewed with patient and/or family. Voiced understanding. Medications as instructed. Elevate the left foot on pillows. Ice pack for 20 minute intervals as needed for pain. Boot and crutches as instructed. Follow-up with Dr. Low as an outpatient within the next 7 days for recheck. Call Monday morning for appointment time. Return to the emergency department for worsened symptoms or any other concerns. Scripts Crutch (Crutch) 1 Each Each PKT MC PRN for Pain, #1 0 Refills Prov: KISHOR DAWN 10/06/18 Hydrocodone Bit/Acetaminophen (Hydrocodone/Acetaminophen 5/325mg Tablet) 1 Tab Tab 1 EACH PO Q4-6HR PRN for PAIN-MODERATE MDD 10 for 3 Days, #20 TAB 0 Refills Prov: KISHOR DAWN 10/06/18 Work/School Note: Work Release Form Date Seen in the Emergency Department: October 06, 2018 Return to Work: October 08, 2018 Other Restrictions Listed Below: pt must use crutches and boot until released by ortho. KISHOR DAWN October 06, 2018 20:53
--- NOTE | 2018-10-06 20:57 | Diagnostic Imaging Report ---
INDICATION: Fall, left foot injury COMPARISON: None FINDINGS: Two views of the left foot demonstrate no fracture or dislocation. Articular surfaces are normal. No foreign body seen. IMPRESSION: Negative left foot Dictated by: Dictated on workstation # [id number]
--- NOTE | 2018-10-06 20:59 | Diagnostic Imaging Report ---
INDICATION: Left ankle pain COMPARISON: None FINDINGS: 3 views of the left ankle demonstrate no fracture or dislocation. Articular surfaces are normal. No foreign body seen. IMPRESSION: Negative left ankle Dictated by: Dictated on workstation # [id number]
--- NOTE | 2018-10-06 21:30 | NUR ---
TAKE HOME PACKAGE DISPENSED
[2018-10-06] MEDS ORDERED: ACHD5005 PO (21:33)
[2018-10-06] MEDS ORDERED: CRUT1EAC7 MC (21:33)
[2018-10-06] MEDS ORDERED: RX-HYDROCODONE/APAP 5/325 MG #4 TAB PK PO PRN (21:45)
[2018-10-06 21:48] VITALS: BP 141/71
== END 2018-10-06 21:48 | disposition home or self-care (01) ==
LOC: EDUNIT# 20:08 → ER 20:09
DX: S92.215A Nondisplaced fracture of cuboid bone of left foot, initial encounter for closed fracture (principal); Z97.5 Presence of (intrauterine) contraceptive device; Z86.19 Personal history of other infectious and parasitic diseases; Z87.442 Personal history of urinary calculi; Z87.19 Personal history of other diseases of the digestive system; X50.1XXA Overexertion from prolonged static or awkward postures, initial encounter
CPT/HCPCS: 29515; 73610; 73630